=== PATIENT | male | born 1990 | race Caucasian/White ===

== ENCOUNTER 2017-01-18 18:13 | Observation (INO) | payer OTHER ==
[2017-01-18] MEDS ORDERED: MORPHINE 2 MG/ML SYRINGE IVP STA (18:44)
[2017-01-18] MEDS ORDERED: SODIUM CHLORIDE 0.9% 1,000 ML IV ONE (18:44)
[2017-01-18] MEDS ORDERED: ONDANSETRON 4 MG/2 ML VIAL IVP STA (18:44)
--- NOTE | 2017-01-18 18:45 | ED Physician Documentation ---
PD HPI ABD PAIN - Stated complaint Stated Complaint: ABD PAIN - Chief complaint Chief Complaint: Abd Pain - History obtained from History obtained from: Patient - History of Present Illness Timing - onset: Other (Developed lower abdominal pain this morning the moved to the right lower quadrant this afternoon associated with chills and feeling warm. No nausea. Had small bowel movements which didn't change the pain. Movement hurts.) Review of Systems Ten Systems: 10 systems reviewed and negative Constitutional: reports: Chills, Myalgias Cardiac: denies: Chest pain / pressure, Palpitations Respiratory: denies: Dyspnea, Cough PD PAST MEDICAL HISTORY - Past Medical History Past Medical History: No - Past Surgical History Past Surgical History: No - Present Medications Home Medications: Ambulatory Orders Medication Instructions Recorded Confirmed No Known Home Medications [No 01/18/17 01/18/17 Known Home Medications] - Allergies Allergies/Adverse Reactions: Allergies Allergy/AdvReac Type Severity Reaction Status Date / Time No Known Drug Allergies Allergy Verified 01/18/17 18:29 - Social History Does the pt smoke?: No Smoking Status: Never smoker - Family History Family history: reports: Non contributory - Immunizations Immunizations are current?: Yes PD ED PE NORMAL - Vitals Vital signs reviewed: Yes - General General: Alert and oriented X 3, No acute distress - HEENT HEENT: PERRL, EOMI - Neck Neck: Supple, no meningeal sign, No bony TTP - Cardiac Cardiac: RRR, No murmur - Respiratory Respiratory: No respiratory distress, Clear bilaterally - Abdomen Abdomen: Soft, Other (Focally tender in the right lower quadrant with positive Rovsing sign) - Back Back: No CVA TTP, No spinal TTP - Derm Derm: Normal color, Warm and dry - Extremities Extremities: No deformity, No tenderness to palpate, No edema, No calf tenderness / cord - Neuro Neuro: Alert and oriented X 3, Normal speech - Psych Psych: Normal mood, Normal affect Results - Vitals Vitals: Vital Signs - 24 hr 01/18/17 01/18/17 18:27 20:40 Temperature 37.9 C H Heart Rate 110 H 99 Respiratory 18 16 Rate Blood Pressure 151/80 H 131/71 H O2 Saturation 96 95 Oxygen O2 Source Room air - Labs Labs: Laboratory Tests 01/18/17 01/18/17 18:50 18:50 WBC 15.9 H RBC 5.64 Hgb 16.3 Hct 48.2 MCV 85.3 MCH 28.9 MCHC 33.8 RDW 13.0 Plt Count 187 MPV 8.6 Neut # 13.1 H Lymph # 1.5 Walker # 1.2 H Eos # 0.1 Baso # 0.1 Absolute Nucleated RBC 0.00 Nucleated RBCs 0.0 Sodium 136 Potassium 3.6 Chloride 102 Carbon Dioxide 25 Anion Gap 9.0 BUN 9 Creatinine 1.0 Estimated GFR (MDRD) 90 Glucose 131 H Calcium 9.7 Total Bilirubin 0.9 AST 24 ALT 49 Alkaline Phosphatase 48 Total Protein 7.4 Albumin 4.6 Globulin 2.8 Albumin/Globulin Ratio 1.6 Lipase 20 L - Rads (name of study) CT A/P Radiology: EMP read contemporaneously (Acute appendicitis with appendicolith) PD MEDICAL DECISION MAKING - Consults Consults: Consulted (name) (Vikki Hays foot and ankle surgeon surgeon, requests CT to eval for potential appy before going to OR 1923; we spoke again after CT- he will take to OR) Departure - Departure Disposition: ED Transfer to [facility] Clinical Impression: Appendicitis Qualifiers: Appendicitis type: acute appendicitis Acute appendicitis type: unspecified acute appendicitis type Qualified Code(s): K35.80 - Unspecified acute appendicitis Condition: Stable
[2017-01-18] MEDS ORDERED: MORPHINE 2 MG/ML SYRINGE ONE ×2 (18:54)
[2017-01-18] MEDS ORDERED: ONDANSETRON 4 MG/2 ML VIAL ONE (18:54)
[2017-01-18 19:01] LABS: BASOPHILS # (AUTO) 0.1 10^3/uL (0.0-0.1); BASOPHILS % (AUTO) 0.7 %; EOSINOPHILS # (AUTO) 0.1 10^3/uL (0.0-0.7); EOSINOPHILS % (AUTO) 0.3 %; HCT - HEMATOCRIT 48.2 % (42.0-52.0); HGB - HEMOGLOBIN 16.3 g/dL (14.0-18.0); LYMPHOCYTES # (AUTO) 1.5 10^3/uL (1.5-3.5); LYMPHOCYTES % (AUTO) 9.5 %; MEAN CORPUSCULAR HEMOGLOBIN 28.9 pg (27.0-31.0); MEAN CORPUSCULAR HGB CONC 33.8 g/dL (32.0-36.0); MEAN CORPUSCULAR VOLUME 85.3 fL (80.0-94.0); MEAN PLATELET VOLUME 8.6 fL (7.4-11.4); MONOCYTES # (AUTO) 1.2 10^3/uL (0.0-1.0); MONOCYTES % (AUTO) 7.4 %; NEUTROPHILS # (AUTO) 13.1 10^3/uL (1.5-6.6); NEUTROPHILS % (AUTO) 82.1 %; RED BLOOD COUNT 5.64 10^6/uL (4.70-6.10); UNCORRECTED WHITE BLOOD COUNT 15.9 x10^3/uL; WHITE BLOOD COUNT 15.9 x10^3/uL (4.8-10.8)
[2017-01-18 19:20] LABS: ALBUMIN/GLOBULIN RATIO 1.6 (1.0-2.2); BILIRUBIN,TOTAL 0.9 mg/dL (0.2-1.0); CALCIUM 9.7 mg/dL (8.5-10.3); POTASSIUM 3.6 mmol/L (3.5-5.0); TOTAL PROTEIN 7.4 g/dL (6.7-8.2)
[2017-01-18] MEDS ORDERED: LACTATED RINGERS 1,000 ML IV ONE ×3 (19:59→22:14)
[2017-01-18] MEDS ORDERED: PIPERACILLIN/TAZOBACTAM 3.375 GM in SODIUM CHLORIDE 0.9% MINIBAG 100 ML IV STA (19:59)
--- NOTE | 2017-01-18 20:01 | HISTORY & PHYSICAL EXAMINATION ---
Chief Complaint - Chief Complaint Chief Complaint: Abdominal pain Abdominal Pain HPI - Instructions [place]/Slash: -Left hand click circles element as positive or present. -Right hand click slashes element as negative or not present. - Admitted From Admitted from: OB - History Obtained From History obtained from: Patient Exam limitations: No limitations - History of Present Illness Severity at the worst: reports: Moderate Pain Quality: reports: Sharp Context-Pain started w/: reports: Other (nothing) Timing: reports: Abrupt onset Duration: reports: Days: (1) Improved with: reports: Nothing Worsened by: reports: Movement HPI Comment/Other: 26 yo male with 1 day history of 10/10 generalized sharp abdominal pain which localized to right lower quadrant. First time episode. Denies any nausea or vomiting. Found to have temp 37.9. Denies any medical or surgical history. Lastg meal yesterday. No recent travels or new foods. PMH/PSH - Past Medical History Respiratory: positive: None Neuro: positive: None Endocrine/Autoimmune: positive: None BIZTALK ARCHITECT: positive: None : positive: None HEENT: positive: None Psych: positive: None Musculoskeletal: positive: None Derm: positive: None MRSA Hx?: No Social & Family Hx - Living Situation Living Situation: With spouse/s.o. - Social History Does the pt smoke?: No Smoking Status: Never smoker Meds/Allgy - Home Medications Home Medications: Ambulatory Orders Medication Instructions Recorded Confirmed No Known Home Medications [No 01/18/17 01/18/17 Known Home Medications] - Allergies Allergies/Adverse Reactions: Allergies Allergy/AdvReac Type Severity Reaction Status Date / Time No Known Drug Allergies Allergy Verified 01/18/17 18:29 Review of Systems - Eyes Eyes: denies: Pain - Ears, Nose & Throat Ears, Nose & Throat: denies: Ear pain - Cardiovascular Cariovascular: denies: Irregular heart rate, Palpitations - Respiratory Respiratory: denies: Cough - Gastrointestinal Gastrointestinal: reports: Abdominal pain. denies: Abdominal distention, Constipation, Diarrhea, Black stools, Bloody stools, Nausea, Vomiting, Bile emesis - Genitourinary Genitourinary: denies: Dysuria - Musculoskeletal Musculoskeletal: denies: Muscle pain - Integumentary Integumentary: denies: Rash - Neurological Neurological: denies: General weakness - Psychiatric Psychiatric: denies: Depression - Endocrine Endocrine: denies: Polyuria - Hematologic/Lymphatic Hematologic/Lymphatic: denies: Anemia Exam - Vital Signs Reviewed Vital Signs: Yes Vital Signs: Vital Signs x48h Temp Pulse Resp BP Pulse Ox 01/18/17 18:27 37.9 C H 110 H 18 151/80 H 96 - Physical Exam General Appearance: positive: No acute distress Eyes Bilateral: positive: Normal inspection ENT: positive: ENT inspection nml Neck: positive: Nml inspection Respiratory: positive: Chest non-tender Cardiovascular: positive: Regular rate & rhythm Abdomen: positive: Tenderness (+BS, +guarding, + rosving, mild distention, TTP RLQ, no hernias noted) Rectal: positive: Other (deferred) Back: positive: Nml inspection Skin: positive: Color nml, Warm, Dry Extremities: positive: Non-tender Neurologic/Psychiatric: positive: Oriented x3 Results - Lab Results Fish Bones: 01/18/17 18:50 01/18/17 18:50 Other Lab Results: Lab Results x24hrs 01/18/17 01/18/17 Range/Units 18:50 18:50 WBC 15.9 H (4.8-10.8) x10^3/uL RBC 5.64 (4.70-6.10) 10^6/uL Hgb 16.3 (14.0-18.0) g/dL Hct 48.2 (42.0-52.0) % MCV 85.3 (80.0-94.0) fL MCH 28.9 (27.0-31.0) pg MCHC 33.8 (32.0-36.0) g/dL RDW 13.0 (12.0-15.0) % Plt Count 187 (130-450) 10^3/uL MPV 8.6 (7.4-11.4) fL Neut # 13.1 H (1.5-6.6) 10^3/uL Lymph # 1.5 (1.5-3.5) 10^3/uL [place]pine # 1.2 H (0.0-1.0) 10^3/uL Eos # 0.1 (0.0-0.7) 10^3/uL Baso # 0.1 (0.0-0.1) 10^3/uL Absolute Nucleated RBC 0.00 x10^3/uL Nucleated RBCs 0.0 /100WBC Sodium 136 (135-145) mmol/L Potassium 3.6 (3.5-5.0) mmol/L Chloride 102 (101-111) mmol/L Carbon Dioxide 25 (21-32) mmol/L Anion Gap 9.0 (6-13) BUN 9 (6-20) mg/dL Creatinine 1.0 (0.6-1.2) mg/dL Estimated GFR (MDRD) 90 (>89) Glucose 131 H (70-100) mg/dL Calcium 9.7 (8.5-10.3) mg/dL Total Bilirubin 0.9 (0.2-1.0) mg/dL AST 24 (10-42) IU/L ALT 49 (10-60) IU/L Alkaline Phosphatase 48 (42-121) IU/L Total Protein 7.4 (6.7-8.2) g/dL Albumin 4.6 (3.2-5.5) g/dL Globulin 2.8 (2.1-4.2) g/dL Albumin/Globulin Ratio 1.6 (1.0-2.2) Lipase 20 L (22-51) U/L - Diagnostic Imaging Results Diagnostic Imaging Results: positive: Read contemporaneously AR[facility] - Anticipated LOS Anticipated Stay Length: Less than 2 midnights - DVT/VTE - Prophylaxis VTE/DVT Device ordered at admit?: Yes VTE/DVT Prophylaxis med ordered at admit?: No Not Ordered - Medical Reason: Not indicated Impression/Plan - Problem List Problem List: 26 yo male with acute appendicitis with appendicolith OR today for laparoscopic possible open appendectomy NPO Zosyn 3.375 gm IV Q 6 LR IV @ 150 mL/hr
[2017-01-18] MEDS ORDERED: IOPAMIDOL-300 100 ML VIAL IVP ONE (20:04)
--- NOTE | 2017-01-18 20:33 | CT Preliminary Report ---
Exam: CT Abdomen/Pelvis W/ IMPRESSION: 1. Acute appendicitis involving the tip of the appendix. Calcified appendicolith noted. 2. No drainable abscess. No dilated bowel or mechanical bowel obstruction. [facility] SITE ID: [id number]
--- NOTE | 2017-01-18 20:35 | CT Report ---
EXAM: CT ABDOMEN AND PELVIS EXAM DATE: 01/18/2017 08:12 PM. CLINICAL HISTORY: IV only, RLQ pain. COMPARISONS: None. TECHNIQUE: Routine helical CT imaging was performed through the abdomen and pelvis. IV contrast: 100 cc Isovue-300 IV. Enteric contrast: No. Reconstructions: Coronal and sagittal. In accordance with CT protocol optimization, one or more of the following dose reduction techniques w ere utilized for this exam: automated exposure control, adjustment of mA and/or KV based on patient s ize, or use of iterative reconstructive technique. FINDINGS: Lung Bases: Unremarkable. Liver: Normal. No masses. Gallbladder/Bile Ducts: Unremarkable. Spleen: Normal. Pancreas: Normal. Adrenal Glands: Normal. Kidneys: Normal. No masses or hydronephrosis. Peritoneal Cavity/Bowel: There is a localized inflammatory process in the right lower quadrant around the tip of the appendix. There is a calcified appendicolith at the tip of the appendix measuring 0.7 cm in diameter. There is a fluid-filled dilated appendix tip with a thickened wall measuring up to 1 .3 cm in diameter with surrounding fat stranding. No dilated bowel. No free air. The appendix near th e cecum is normal. Pelvic Organs: Normal. The bladder and visualized pelvic organs are within normal limits. Vasculature: No aneurysms or other significant abnormality. Bones: No significant abnormality. Other: None. IMPRESSION: 1. Acute appendicitis involving the tip of the appendix. Calcified appendicolith noted. 2. No drainable abscess. No dilated bowel or mechanical bowel obstruction. [facility] Referring Provider Line: [phone] SITE ID: [id number]
[2017-01-18] MEDS ORDERED: BUPIVACAINE 0.5%-EPI 1:200000 PF 30 ML VIAL SUBQ ONE ×3 (21:35)
[2017-01-18] MEDS ORDERED: ROCURONIUM 50 MG/5 ML VIAL IVP ONE (22:00)
[2017-01-18] MEDS ORDERED: GLYCOPYRROLATE 1 MG/5 ML VIAL IVP ONE (22:00)
[2017-01-18] MEDS ORDERED: MIDAZOLAM 2 MG/2 ML VIAL IVP ONE (22:00)
[2017-01-18] MEDS ORDERED: LIDOCAINE-MPF 2% 5 ML VIAL IM ONE (22:00)
[2017-01-18] MEDS ORDERED: NEOSTIGMINE 1 MG/1 ML 10 ML MDV IVP ONE (22:00)
[2017-01-18] MEDS ORDERED: fentaNYL 100 MCG/2 ML VIAL IVP ONE (22:00)
[2017-01-18] MEDS ORDERED: PROPOFOL 200 MG/20 ML VIAL IVP ONE (22:00)
[2017-01-18] MEDS ORDERED: DEXAMETHASONE 4 MG/ML VIAL IVP ONE (22:00)
[2017-01-18] MEDS ORDERED: ONDANSETRON 4 MG/2 ML VIAL IVP ONE (22:00)
--- NOTE | 2017-01-18 22:42 | OPERATIVE REPORT ---
Operative Report - General Procedure Date: 01/18/17 Planned Procedure: Laparoscopic appendectomy Pre-Op Diagnosis: Acute appendicitis Post Op Diagnosis: Acute Appendicitis, non-perforated retrocecal - Procedure Note Primary Surgeon: Saúl Anesthesia Provider: Lela Walker CRNA Anesthesia Technique: General ET tube Pathology: Appendix Estimated Blood Loss (in cc): 5 Complications: None - Other Other Information/Narrative: Please see dictated report
[2017-01-18] MEDS ORDERED: SODIUM CHLORIDE FLUSH 0.9% 10 ML SYRINGE IVP PRN (22:43)
[2017-01-18] MEDS ORDERED: ACETAMINOPHEN 325 MG TABLET PO PRN (22:48)
[2017-01-18] MEDS ORDERED: ONDANSETRON 4 MG/2 ML VIAL IVP PRN (22:48)
[2017-01-18] MEDS ORDERED: ACETAMINOPHEN 1,000 MG/100 ML 100 ML IV PRN (22:48)
[2017-01-18] MEDS ORDERED: MORPHINE 2 MG/ML SYRINGE IVP PRN (22:48)
[2017-01-18] MEDS ORDERED: LACTATED RINGERS 1,000 ML IV SCH (23:00)
[2017-01-19] MEDS: PIPERACILLIN/TAZOBACTAM 3.375 GM in SODIUM CHLORIDE 0.9% MINIBAG 100 ML IV SCH ×2 (00:29→05:45)
[2017-01-19] MEDS: oxyCOD/ACETAMIN 5 MG/325 MG TABLET PO PRN ×2 (05:03→10:51)
[2017-01-19] MEDS ORDERED: SODIUM CHLORIDE FLUSH 0.9% 10 ML SYRINGE IVP SCH (06:00)
[2017-01-19 06:03] LABS: BASOPHILS % (AUTO) 0.3 %; EOSINOPHILS % (AUTO) 0.1 %; HCT - HEMATOCRIT 44.9 % (42.0-52.0); HGB - HEMOGLOBIN 15.4 g/dL (14.0-18.0); LYMPHOCYTES # (AUTO) 1.2 10^3/uL (1.5-3.5); LYMPHOCYTES % (AUTO) 7.7 %; MEAN CORPUSCULAR HEMOGLOBIN 29.4 pg (27.0-31.0); MEAN CORPUSCULAR HGB CONC 34.4 g/dL (32.0-36.0); MEAN CORPUSCULAR VOLUME 85.4 fL (80.0-94.0); MEAN PLATELET VOLUME 9.1 fL (7.4-11.4); MONOCYTES # (AUTO) 1.1 10^3/uL (0.0-1.0); MONOCYTES % (AUTO) 6.6 %; NEUTROPHILS # (AUTO) 13.5 10^3/uL (1.5-6.6); NEUTROPHILS % (AUTO) 85.3 %; RED BLOOD COUNT 5.25 10^6/uL (4.70-6.10); RED CELL DISTRIBUTION WIDTH 13.2 % (12.0-15.0); UNCORRECTED WHITE BLOOD COUNT 15.8 x10^3/uL; WHITE BLOOD COUNT 15.8 x10^3/uL (4.8-10.8)
--- NOTE | 2017-01-19 06:45 | Discharge Plan ---
Discharge Plan Disposition: 01 Home, Self Care Condition: Stable Prescriptions: Hydrocodone/Acetaminophen [[place] 5-325 Tablet] 2 each PO Q6HR PRN #20 tablet PRN Reason: Pain Ondansetron HCl [Zofran] 8 mg PO Q8H PRN #12 tablet PRN Reason: Nausea / Vomiting Diet: Regular Activity Restrictions: Additional Comments (No lifting more than 20 lbs for 2 weeks Ambulate 3 times daily) Shower Restrictions: No Driving Restrictions: No (Do not drive while taking narcotics) Weight Bearing: Full Weight No Smoking: If you smoke, Please STOP! Call for help. Follow-up with: Gaston Hays DO [Provider Admit Priv/Credential] - 1 Week
--- NOTE | 2017-01-19 06:51 | PROVIDER PROGRESS NOTE ---
Subjective - General Admit Date: 01/18/17 Procedure Date: 01/18/17 Post Op Days: 1 Procedure Performed: Laparoscopic appendectomy - Review of Systems Wound/Incisions: positive: Dressing dry and intact General: positive: No symptoms HEENT: positive: No symptoms Pulmonary: positive: No symptoms Cardiovascular: positive: No symptoms Gastrointestinal: positive: Abdominal pain (Post op pain appropriate) Genitourinary: positive: No symptoms Musculoskeletal: positive: No symptoms Skin: positive: No symptoms Psychiatric: positive: No symptoms Objective - Patient Data Vital Signs: Vital Signs x48h Temp Pulse Resp BP Pulse Ox 01/19/17 04:45 36.9 C 75 18 119/73 94 01/19/17 01:13 37 C 75 16 118/79 93 01/19/17 00:35 70 17 128/77 92 01/18/17 23:59 37.2 C 77 16 115/73 93 01/18/17 23:30 95 01/18/17 23:15 96 01/18/17 23:00 93 01/18/17 22:55 91 L 01/18/17 22:50 92 Weight: Weight 01/17/17 01/18/17 01/19/17 23:59 23:59 23:59 Weight (kg) 92.079 kg Intake & Output: Intake and Output Totals x24h 01/17/17 01/18/17 01/19/17 23:59 23:59 23:59 Intake Total 950 Output Total 1550 Balance -600 - Lab Results Lab Results: 01/19/17 04:55 01/18/17 18:50 Other Lab Results: Lab Results x24hrs 01/19/17 Range/Units 04:55 WBC 15.8 H (4.8-10.8) x10^3/uL RBC 5.25 (4.70-6.10) 10^6/uL Hgb 15.4 (14.0-18.0) g/dL Hct 44.9 (42.0-52.0) % MCV 85.4 (80.0-94.0) fL MCH 29.4 (27.0-31.0) pg MCHC 34.4 (32.0-36.0) g/dL RDW 13.2 (12.0-15.0) % Plt Count 175 (130-450) 10^3/uL MPV 9.1 (7.4-11.4) fL Neut # 13.5 H (1.5-6.6) 10^3/uL Lymph # 1.2 L (1.5-3.5) 10^3/uL Bates # 1.1 H (0.0-1.0) 10^3/uL Eos # 0.0 (0.0-0.7) 10^3/uL Baso # 0.0 (0.0-0.1) 10^3/uL Absolute Nucleated RBC 0.00 x10^3/uL Nucleated RBCs 0.0 /100WBC - Current Medications Current Medications: Current Medications Generic Name Dose Route Start Last Admin Trade Name Freq PRN Reason Stop Dose Admin Piperacillin Sod/Tazobactam 100 mls @ 200 mls/hr 01/19/17 00:00 01/19/17 05:45 Sod 3.375 gm/ Sodium Chloride IV 200 mls/hr Q6HR DEBBIE Administration Oxycodone/Acetaminophen 2 tab 01/18/17 22:48 01/19/17 05:03 Percocet 5 Mg/325 Mg PO 2 tab Q4HR PRN Administration PAIN Sodium Chloride 10 ml 01/19/17 06:00 01/19/17 05:46 Normal Saline Flush 0.9% IVP Not Given Q8HR DEBBIE - Physical Exam Wound/Incisions: positive: Dressing dry and intact General Appearance: positive: No acute distress Eyes Bilateral: positive: Normal inspection ENT: positive: ENT inspection nml Respiratory: positive: No respiratory distress Cardiovascular: positive: Regular rate & rhythm Abdomen: positive: Nml bowel sounds, No distention. negative: Guarding, Rebound Skin: positive: Warm, Dry Extremities: positive: Full ROM Neurologic/Psychiatric: positive: Oriented x3 Impression/Plan - Problem List Problem List: 26 yo malePOD#1 s/p Laparoscopic Appendectomy. Tolerating diet, ambulating, using IS, urinatining well. D/C home to day
[2017-01-19 12:37] VITALS: BP 108/60
--- NOTE | 2017-01-20 03:14 | DISCHARGE SUMMARY ---
DATE OF ADMISSION: 01/18/2017 DATE OF DISCHARGE: 01/19/2017 ATTENDING PHYSICIAN: Gaston Hays DO CONDITION ON DISCHARGE: Improved. FINAL DIAGNOSIS: Acute appendicitis. PROCEDURES: Laparoscopic appendectomy. HISTORY OF PRESENT ILLNESS: This pleasant 26-year-old male presented with a 1- day duration of sharp, crampy right lower quadrant abdominal pain associated with fever of 37.9 degrees Celsius. The pain became unbearable, so he came to the emergency department. MEDICATIONS: He denies taking any medications on a regular basis. ALLERGIES: DENIED ANY ALLERGIES. LABORATORY DATA: His WBCs were 15.9 thousand. HOSPITAL COURSE: The patient was started on lactated Ringer's, and Zosyn was begun. The operative team was notified, and the patient was taken to surgery for laparoscopic appendectomy (see OR dictation). The patient was recovered by the PACU team. The patient's postoperative course was unremarkable, and he was discharged the next day after urinating and being able to tolerate food. DISCHARGE MEDICATIONS The patient was given: 1. [place] 2 tabs p.o. q.6 p.r.n. pain #20. 2. Zofran 8 mg 1 tab p.o. q.8 p.r.n. nausea and vomiting #12. DISCHARGE INSTRUCTIONS: Instructions given to the patient before and after surgery. The patient was instructed no heavy lifting for the next few weeks. Ambulate 30 minutes 3 times a day starting 01/19/2017, can begin clears and advance diet slowly as tolerated. He was also instructed that he may need Colace [id number] if constipated. If the constipation lasts longer than 48 hours, should call me for further instructions. The patient was instructed not to drive or use heavy equipment, or sign any contracts while on narcotics, and may substitute Tylenol 600 mg every 6 hours instead of the [place]. The patient was instructed to call the clinic for followup in 1 week. 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 FOLLOWUP APPOINTMENTS: Patient instructed to call the clinic 01/19/2017 for an appointment with me the following week. CODE STATUS: FULL CODE. JOB #: [id number] EXT JOB #:[id number] [facility]
--- NOTE | 2017-01-20 06:39 | OPERATIVE REPORT ---
DATE OF SURGERY: 01/18/2017 00:00:00 PREOPERATIVE DIAGNOSIS: Acute appendicitis. POSTOPERATIVE DIAGNOSIS: Acute nonperforated appendicitis. PROCEDURE: Laparoscopic appendectomy. SURGEON: Gaston Hays DO LEVEL VIAL INSPECTOR: Zamzam Desir. ANESTHESIA: General by Lyn Walker CRNA FINDINGS: Acute appendicitis without rupture. SPECIMEN: Appendix. COMPLICATIONS: None. ESTIMATED BLOOD LOSS: 5 mL. URINE OUTPUT: 300 mL. INTRAVENOUS FLUIDS: 1600 mL. INDICATIONS: This 26-year-old male presented with right lower quadrant pain for a 1-day duration associated with fevers of 37.9 degrees Celsius and was found to have a leukocytosis of 15.9 thousand. Computer tomography scan was consistent with acute appendicitis with appendicolith. Laparoscopic, possible open procedure was discussed with the patient. The risks and benefits, including but not limited to infection, bleeding risk of abscess, risk of fistula, anesthesia risk, scar formation, skin irregularities were discussed with the patient. The patient agreed to the procedure and signed consent. All questions were answered. OPERATION: The patient was taken to the operating room and placed in the supine position. General anesthesia was induced after SCDs were placed. A Barnett catheter was placed. The patient had been given IV Zosyn in the ED perioperatively. The patient was prepped and draped in the usual sterile fashion. A timeout was completed verifying the correct patient, procedure, site , position prior to the start of the procedure. Bupivacaine 0.5% with epinephrine was used supraumbilically for Veress needle entry, as well as for all trocar sites. A #15 blade puncture was created through the skin. The Veress needle was passed through the abdominal wall. Proper position was confirmed by aspiration and saline meniscus test. A 12 mm Optiview trocar was placed umbilically under direct vision. A 5 mm trocar was placed suprapubically, then a 5 mm trocar was placed in the left lower quadrant, both under direct vision. The abdomen and pelvis were scanned with no signs of injury from the Veress needle. No gross pelvic disease was observed. The patient was then placed in Trendelenburg with the left side down. The appendix base was clearly visualized, while the tip and body were noted to be retrocecally and adhesed to the right lateral parietal peritoneum. The base of the appendix was grasped with a Virgil, and careful lateral dissection between the peritoneal wall and appendix was performed using blunt dissection, as well as LigaSure. The appendix was freed from the adhesions, and the appendiceal tip was found to be free from rupture. The mesoappendix was dissected bluntly and ligated with the LigaSure. The appendix was rather edematous. A single 45 mm blue load was fired across the base of the appendix with complete transection. The abdomen was irrigated with saline and suctioned. Hemostasis was maintained. The staple line was inspected and found to be intact with no signs of leakage or bleeding. The appendix was removed through the umbilical port. An EndoClose was used with 0 Vicryl to close the fascia of the 12 mm port under direct vision. The skin was then washed copiously and dried, and a 4-0 Monocryl was used for subcuticular closure, followed by application of Mastisol, Steri- Strips, then gauze and Tegaderms. The appendix was sent to Pathology. The patient tolerated the procedure well, was extubated, Barnett removed, and taken to PACU for recovery. All counts were correct. JOB #: [id number] EXT JOB #:[id number] [email or web address]
== END 2017-01-19 12:35 | disposition home or self-care (01) ==
LOC: ED 18:13 → SDS 20:30 → MS 22:43
PROVIDERS: ADMIT Surgery; ATTEND Surgery
PROC: 0DTJ4ZZ Resection of Appendix, Percutaneous Endoscopic Approach (ICD-10-PCS; principal; 2017-01-18 21:00)
DX: K35.80 Unspecified acute appendicitis (principal)
CPT/HCPCS: 36415; 44970; 74177; 80053; 83690; 85025; 86850; 86900; 86901; 96361; 96365; 96375; 99283; 99285; A9270; G0378; J7120; Q9967; 88304